=== PATIENT | female | born 1975 | race Caucasian/White ===

== ENCOUNTER 2019-05-03 22:32 | Emergency (ER) | payer SELFPAY ==
[2019-05-03 22:38] VITALS: BP 156/96; PULSE 108; RESP 18; TEMP 36.6; O2SAT 94; BMI 38.5
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
[2019-05-03 22:56] LABS: Basophils # 0.1 10^3/uL (0.0-0.1); Basophils % 0.5 %; Eosinophils # 0.2 10^3/uL (0.0-0.8); Eosinophils % 1.6 %; Hematocrit 44.3 % (37.0-47.0); Hemoglobin 14.3 g/dL (11.5-15.3); Lymphocytes # 1.6 10^3/uL (0.8-4.8); Lymphocytes % 16.8 %; Mean Corpuscular HGB Conc 32.3 g/dL (30.0-36.0); Mean Corpuscular Hemoglobin 30.1 pg (28.0-34.0); Mean Corpuscular Volume 93.3 fL (81-99); Mean Platelet Volume 9.8 fL (7.4-10.4); Monocytes # 0.8 10^3/uL (0.2-0.9); Monocytes % 8.6 %; Neutrophils # 6.7 10^3/uL (1.8-7.7); Nucleated Red Blood Cells % 0 %; Platelet Count 233 10^3/cmm (130-400); Red Blood Count 4.75 10^6/uL (4.1-5.3); Red Cell Distribution Width 11.9 % (12.1-15.1); White Blood Count 9.3 10^3/uL (4.0-10.0)
[2019-05-03 22:58] VITALS: RESP 20; O2SAT 98
[2019-05-03] MEDS: HYDROmorphone 1 mg/mL INJ 1 mL IVP (22:58)
[2019-05-03 23:00] VITALS: BP 138/75; PULSE 106; RESP 20; O2SAT 98
[2019-05-03 23:07] LABS: Anion Gap 16.9 (5-19); Blood Urea Nitrogen 13 mg/dL (6-20); Calcium 9.1 mg/dL (8.5-10.5); Carbon Dioxide 24 mmol/L (22-29); Chloride 103 mmol/L (98-107); Glomerular Filtration Rate 90.9 mL/min (90-130); Glucose 128 mg/dL (65-115); Osmolality Calculated 288 mOsm/kg (285-295); Potassium 3.9 mmol/L (3.5-5.1); Sodium 140 mmol/L (136-145)
[2019-05-03] MEDS: iohexol 300 mg/mL 100 mL Btl IV (23:45)
[2019-05-03 23:49] VITALS: BP 137/82; PULSE 93; RESP 18; O2SAT 96
[2019-05-04 00:33] VITALS: BP 137/79; PULSE 99; RESP 18; O2SAT 96
== END 2019-05-04 00:35 | disposition home or self-care (01) ==
PROVIDERS: Emergency Provider Emergency Medicine; Family Provider Nurse Practitioner Family; PCP Nurse Practitioner Family
DX: S13.4XXA Sprain of ligaments of cervical spine, initial encounter (principal); E66.9 Obesity, unspecified; V89.2XXA Person injured in unspecified motor-vehicle accident, traffic, initial encounter; Y92.410 Unspecified street and highway as the place of occurrence of the external cause; Z68.38 Body mass index [BMI] 38.0-38.9, adult
CPT/HCPCS: 70450; 71260; 72125; 73030; 74177; 80048; 85025; 96374; 96375; 99282; 99283; J1170; Q9967

== ENCOUNTER → 2020-02-12 12:49 | Outpatient (BNVA) | payer OTHER, SELFPAY | PROVIDERS: Family Provider Nurse Practitioner Family; PCP Nurse Practitioner Family; Visit Provider Nurse Practitioner Family | DX: Z20.828 Contact with and (suspected) exposure to other viral communicable diseases (principal); J06.9 Acute upper respiratory infection, unspecified | CPT/HCPCS: 87635 ==

== ENCOUNTER 2020-09-07 12:48 | Emergency (ER) | payer SELFPAY ==
[2020-09-07 13:04] VITALS: BP 141/82; PULSE 76; RESP 18; TEMP 36.7; O2SAT 97; BMI 38.0
[2020-09-07 14:00] VITALS: BP 109/83; PULSE 89; RESP 18; O2SAT 98
--- NOTE | 2020-09-07 14:09 | XRR_ITS ---
PROCEDURE INFORMATION: Exam: XR Chest Exam date and time: 09/07/2020 2:09 PM Age: 45 years old Clinical indication: Dyspnea TECHNIQUE: Imaging protocol: XR of the chest. Views: 1 view. COMPARISON: CT chest abd pel w con* 05/03/2019 11:47 PM FINDINGS: Lungs: No acute airspace disease. Pleural spaces: No pleural effusion. Heart/Mediastinum: No cardiomegaly. Bones/joints: Degenerative change. XR/XR chest 1V portable [id number] IMPRESSION: No acute airspace or pleural disease.
--- NOTE | 2020-09-07 14:13 | ECG_ITS ---
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 Measurements Intervals [place] Rate: 74 P: 56 DC: 195 QRS: 42 QRSD: 91 T: 30 QT: 375 QTc: 418 Interpretive Statements SINUS RHYTHM No previous ECG available for comparison Electronically Signed On 09-07-2020 18:51:35 CDT by Froylan Lu M.D. [id number]
--- NOTE | 2020-09-07 14:29 | W.ED.GENADLT ---
HPI - General Adult General: Chief complaint: General Medical Stated complaint: COUGH, H/A X 1 WK, LAST COVID (-) TEST 1 WK AGO Time Seen by Provider: 09/07/20 13:56 History of Present Illness: HPI narrative: The patient is a 45-year-old female with no significant past medical history who comes to the ER complaining of 1 week increasing shortness of breath, scratchy throat. She says a week ago where she works changed the face max today to use to a cheaper paper type I that she says has dust panties on the inside. She says within an hour of putting that new one on she complained of scratchy throat and increasing shortness of breath and feels like she cannot breathe. She says after the first day of wearing it she went home and had a temperature of 100, started to cough, she feels like when she bends over she will pass out and has a headache. She has not have any a fever since but has continued to have mild cough and scratchy throat as well as headache. She has spoken to her sr. director as she is a [employer] where she works who told her she had to wear the mask. Onset (ago): day(s) (7) Severity: moderate Quality: constant Associated symptoms: Deny chest pain, confusion, dyspnea, headache(s), rash or palpitations Review of Systems General: Reports: 10 or more systems reviewed and unremarkable except in HPI and below Const: Denies: fatigue Eyes: Denies: change in vision, blurry vision or eye redness ENMT: Reports: hoarseness, sinus pain and other; Denies: throat pain, swelling of lips/tongue, ear or mastoid pain or nasal congestion Card: Denies: chest pain, palpitations, irregular heart rhythm, edema, dyspnea on exertion or orthopnea Resp: Denies: dyspnea, productive cough or non-productive cough GI: Denies: abdominal pain, diarrhea or GI cramping : Denies: flank pain, difficulty voiding, urinary frequency or urinary urgency Musc: Denies: neck pain, back pain, extremity pain, joint pain, joint redness, limited range of motion or muscle weakness Skin/Breast: Denies: rash, pruritus, erythema, skin pain or skin tenderness Neuro: Denies: headache(s), numbness in extremities, weakness in extremities, sensory changes, difficulty walking, dizziness, confusion or Slurred speech present Psych: Denies: anxiety or depression Endo: Denies: polyuria All/Imm: Denies: urticaria, throat swelling or tongue swelling PFSH ED PFSH: Social History Smoking and tobacco status: former smoker Physical Exam Const: COMMON NORMALS: no acute distress, average body habitus, patient oriented x3, no limitations, healthy appearing, alert and well nourished GENERAL APPEARANCE: cooperative, comfortable, well kempt and well developed ORIENTATION/CONSCIOUSNESS: Yes awake, Yes oriented to person, Yes oriented to place and Yes oriented to time HENMT: COMMON NORMALS: normocephalic, external ears normal and Normal external nose present HEAD & SCALP: normal to inspection and normocephalic NOSE: Normal external nose present EXTERNAL EAR: Yes external ears normal MOUTH: Normal oral and palatal mucosa present THROAT: posterior oropharynx normal OTHER: Mild tenderness to frontal sinus. Eye: COMMON NORMALS: Equal, round and reactive pupils present and EOMs intact bilaterally GENERAL EYE: appearance normal, both eyes and all related structures PUPIL: Yes Equal, round and reactive pupils present Neck/C-Spine: COMMON NORMALS: full ROM, no lymphadenopathy, no meningeal signs and no JVD GENERAL: Yes normal visual inspection Lymph: LYMPHATIC: no lymphadenopathy noted Chest: COMMONS NORMALS: normal inspection of the chest and normal palpation of entire chest wall Resp: COMMON NORMALS: normal respiratory effort, No retractions, No use of accessory muscles, clear to auscultation bilaterally and percussion normal EFFORT & INSPECTION: Yes able to speak in complete sentences AUSCULTATION: clear to auscultation bilaterally PERCUSSION: percussion normal Cardio: COMMON NORMALS: no JVD, regular rate, regular rhythm, S1 normal heart sound present, S2 normal heart sound present and Peripheral pulses 2+ throughout RATE: regular rate RHYTHM: regular rhythm HEART SOUNDS: S1 normal heart sound present and S2 normal heart sound present PERIPHERAL PULSES: Peripheral pulses 2+ throughout GI: COMMON NORMALS: Normal to inspection, nondistended, normoactive bowel sounds present, Soft to palpation, non-tender and no masses INSPECTION: Yes normal to inspection PALPATION: Yes Soft to palpation : COMMON NORMALS: Yes no CVA tenderness BLADDER/KIDNEY EXAM: Yes no CVA tenderness Back/Pelvis: COMMON NORMALS: no CVA tenderness, thoracic and lumbar spine normal to inspection, no thoracic nor lumbar tenderness and thoraco-lumbar ROM normal Extremity: COMMON NORMALS: normal to inspection, full ROM, capillary refill normal, no joint enlargement and no pedal edema GENERAL: Yes normal exam except as noted Neuro: COMMON NORMALS: patient oriented x3, CN's II-XII intact bilaterally, moves all extremities, no focal motor deficits, no sensory deficits noted and gait normal SENSORIUM/ORIENTATION: Yes alert, Yes oriented to person, Yes oriented to place and Yes oriented to time MENINGEAL SIGNS: Yes no meningeal signs Psych: COMMON NORMALS: mental status grossly normal, Normal thought process present, cooperative, normal affect and speech normal APPEARANCE: Yes well kempt ATTITUDE: Yes calm SPEECH: Yes normal speech THOUGHT PROCESS: Normal thought process present Skin: COMMON NORMALS: no rashes or lesions noted GENERAL SKIN EXAM: no rashes or lesions noted Course Vital Signs: Vital signs: Vital Signs Temperature 98.1 F 09/07/20 13:04 Pulse Rate 76 09/07/20 14:58 Respiratory Rate 18 09/07/20 14:58 Blood Pressure 124/86 09/07/20 14:58 Pulse Oximetry 96 09/07/20 14:58 MDM - General Adult MDM Narrative: Medical decision making narrative: Her exam is normal except for some possible tenderness to frontal sinus. We will treat with azithromycin as an outpatient as well as prednisone to help her possible irritation from the mask. She is not to wear that mask anymore and find alternative face covering as the mask is possibly causing some of her throat irritation as well. Return to the ER at anytime with worsening symptoms otherwise follow-up with primary care physician next week. Lab Data: Labs: Lab Results 09/07/20 09/07/20 09/07/20 Range/Units 14:30 14:30 14:35 WBC 7.4 (4.0-10.0) 10^3/ uL RBC 4.66 (4.1-5.3) 10^6/u L Hgb 13.9 (11.5-15.3) g/dL Hct 43.5 (37.0-47.0) % MCV 93.3 (81-99) fL MCH 29.8 (28.0-34.0) pg MCHC 32.0 (30.0-36.0) g/dL RDW 12.3 (12.1-15.1) % Plt Count 235 (130-400) 10^3/c mm MPV 9.9 (7.4-10.4) fL Neut % (Auto) 67.4 % Lymph % (Auto) 20.8 % [place] % (Auto) 7.3 % Eos % (Auto) 3.4 % Baso % (Auto) 0.7 % Neut # (Auto) 4.96 (1.8-7.7) 10^3/u L Lymph # (Auto) 1.5 (0.8-4.8) 10^3/u L [place] # (Auto) 0.5 (0.2-0.9) 10^3/u L Eos # (Auto) 0.3 (0.0-0.8) 10^3/u L Baso # (Auto) 0.1 (0.0-0.1) 10^3/u L Nucleated RBC % (a uto) 0 % Nucleated RBCs # 0.0 /100WBC Sodium 141 (136-145) mmol/L Potassium 4.0 (3.5-5.1) mmol/L Chloride 106 (98-107) mmol/L Carbon Dioxide 27 (22-29) mmol/L Anion Gap 12.0 (5-19) BUN 12 (6-20) mg/dL Creatinine 0.7 (0.5-0.9) mg/dL GFR Calculation 90.1 (90-130) mL/min Glucose 87 (65-115) mg/dL Calculated Osmolal ity 291 (285-295) mOsm/k g Calcium 8.2 L (8.5-10.5) mg/dL Total Bilirubin 0.5 (0.15-1.2) mg/dL AST 14 (0-32) U/L ALT 18 (0-33) U/L Alkaline Phosphata se 77 (35-105) IU/L NT-Pro-B Natriuret Pep 57 (0-125) pg/mL Total Protein 6.9 (6.6-8.7) g/dL Albumin 4.0 (3.5-5.2) g/dL Globulin 2.9 (1.3-4.6) g/dL SARS-CoV-2 Ag (Rap id) Negative (Negative) Discharge Plan Discharge Patient Disposition: Home Clinical Impression: Sinusitis, Throat irritation Condition: Stable Prescriptions: New prednisone 20 mg tablet 20 mg PO BID 5 Days Qty: 10 RF: 0 No Action baclofen 10 mg tablet 10 mg PO BID PRN (Reason: back spasms) Qty: 45 RF: 0 Discharge Orders: Discharge ED (Routine); Ordered 09/07/20 Ordered By: Herson Wynn Referrals: Serjio Mays FNP [Primary Care Provider] - Discharge Diet: Advance as tolerated Discharge Activity: Resume usual activity Patient Instructions: Opioid Safety, Sinusitis - Acute Activity Restrictions/Additional Instructions: It is possible you are having a reaction to the face mask you have been wearing. Please discontinue use of that one and find some other face covering that you are able to wear without causing his shortness of breath and throat irritation as well as your other symptoms. It is also possible you have a sinus infection and I have prescribed you steroids and antibiotics to help with all of your symptoms. Return to the ER at anytime with worsening symptoms otherwise follow-up with your primary care physician next week to monitor your improvement. Coding Level of Care Code ED Hspt Tutor for Miryam Walter
[2020-09-07 14:41] LABS: Basophils # 0.1 10^3/uL (0.0-0.1); Basophils % 0.7 %; Eosinophils # 0.3 10^3/uL (0.0-0.8); Eosinophils % 3.4 %; Hematocrit 43.5 % (37.0-47.0); Hemoglobin 13.9 g/dL (11.5-15.3); Lymphocytes # 1.5 10^3/uL (0.8-4.8); Lymphocytes % 20.8 %; Mean Corpuscular Hemoglobin 29.8 pg (28.0-34.0); Mean Corpuscular Volume 93.3 fL (81-99); Mean Platelet Volume 9.9 fL (7.4-10.4); Monocytes # 0.5 10^3/uL (0.2-0.9); Monocytes % 7.3 %; Neutrophils # 4.96 10^3/uL (1.8-7.7); Neutrophils % 67.4 %; Nucleated Red Blood Cells % 0 %; Platelet Count 235 10^3/cmm (130-400); Red Blood Count 4.66 10^6/uL (4.1-5.3); Red Cell Distribution Width 12.3 % (12.1-15.1); White Blood Count 7.4 10^3/uL (4.0-10.0)
[2020-09-07 14:58] VITALS: BP 124/86; PULSE 76; RESP 18; O2SAT 96
[2020-09-07 15:09] LABS: Alanine Aminotransferase 18 U/L (0-33); Alkaline Phosphatase 77 IU/L (35-105); Aspartate Amino Transferase 14 U/L (0-32); Blood Urea Nitrogen 12 mg/dL (6-20); Calcium 8.2 mg/dL (8.5-10.5); Carbon Dioxide 27 mmol/L (22-29); Chloride 106 mmol/L (98-107); Globulin 2.9 g/dL (1.3-4.6); Glomerular Filtration Rate 90.1 mL/min (90-130); Glucose 87 mg/dL (65-115); NT Pro B Type Natriuretic Pept 57 pg/mL (0-125); Osmolality Calculated 291 mOsm/kg (285-295); Sodium 141 mmol/L (136-145); Total Bilirubin 0.5 mg/dL (0.15-1.2); Total Protein 6.9 g/dL (6.6-8.7)
[2020-09-07 15:23] LABS: SARS Covid-2 Antigen Negative (Negative)
[2020-09-07 15:42] VITALS: BP 124/86; PULSE 76; RESP 18; O2SAT 96
== END 2020-09-07 15:43 | disposition home or self-care (01) ==
PROVIDERS: Emergency Provider Family Medicine; PCP Registered Nurse
DX: J32.9 Chronic sinusitis, unspecified (principal); R07.0 Pain in throat; Z87.891 Personal history of nicotine dependence
CPT/HCPCS: 71045; 80053; 83880; 85025; 87426; 93005; 99283

== ENCOUNTER → 2020-11-09 09:51 | Outpatient (BNVA) | payer OTHER, SELFPAY | PROVIDERS: PCP Registered Nurse; Visit Provider Registered Nurse | DX: Z20.822 Contact with and (suspected) exposure to COVID-19 (principal); Z11.52 Encounter for screening for COVID-19; J02.9 Acute pharyngitis, unspecified; R11.2 Nausea with vomiting, unspecified | CPT/HCPCS: 87635 ==

== ENCOUNTER → 2020-11-12 09:02 | Outpatient (BNVA) | payer SELFPAY | PROVIDERS: PCP Registered Nurse; Visit Provider Registered Nurse | DX: R19.7 Diarrhea, unspecified (principal) | CPT/HCPCS: 87493; 87506 ==

== ENCOUNTER 2020-12-22 20:12 | Emergency (ER) | payer SELFPAY ==
[2020-12-22 20:22] VITALS: BP 126/80; PULSE 97; RESP 18; TEMP 36.8; O2SAT 95; BMI 37.9
--- NOTE | 2020-12-22 21:23 | ED_ITS ---
HPI - General Adult General: Chief complaint: Headache Stated complaint: Migrane Headache Time Seen by Provider: 12/22/20 21:12 History of Present Illness: HPI narrative: HPI: [45]yo patient w hx of migraine headache presenting to the ED with new onset of headache x 3 days. Describes the headache as pulsatile or cramping headache radiating from the occipital scalp to the front R side. Patient reports headache was gradual in onset over [] hrs and has since been intermittent unremitting and worsening. []Headache associated with +N/+V, photophobia, generalized weakness, and inability to concentrate on tasks. Denies fever/chill, hx of immunocompromise, HIV, or transplant. The patient denies any focal neurological weakness, vision blindness, diplopia, or eye pain, hoarseness of voice or facial weakness. The patient has had decreased PO intake since the onset of headache symptoms. No family hx of subarachnoid hemorrhage. Denies recent trauma to the head. Pain is unrelieved with OTC medication, ibuprofen or Tylenol. Per chart review, the patient prior ED visits for headache. No complaints of chest pain, shortness of breath, palpitations, light-headedness/vertigo/syncope, abdominal pain, or complaints today. Onset: 3days ago Duration: ongoing Location: home Severity: moderate Review of Systems Narrative: Constitutional: No fever, no chills. HEENT: +blurriness of vision CV: No chest pain, no palpitations PULM: No productive cough, no dyspnea. GI: No abdominal pain, +N/+V/-D. : No Dysuria MSKEL: No muscle pain SKIN: No new rashes, no lesions. NEURO: + headache, no focal weakness. HEME: No visible bruises PSYCH: Normal mood PFSH ED PFSH: Social History Smoking and tobacco status: former smoker Physical Exam Narrative: EXAM NARRATIVE: Head: Atraumatic Eyes: PERRL, conjunctiva without injection, eyes tracking ENT: Mucous membrane moist NECK: Supple without lymphadenopathy, no nuchal rigidity LUNGS: LCTAB CV: RRR ABDOMEN: Soft, nontender in all quadrants, no guarding or rebound tenderness, no CVA or flank tenderness bilaterally EXTREMITY: Normal ROM SKIN: No rash or erythema through the whole body NEURO: Mental status: A/Ox3 CN II-XII tested and intact. Sensation intact to sharp/dull differentiation in all extremities. Motor: Normal tone and bulk. No abnormal movements appreciated. No pronator drift. Strength tested and 5/5 in bilateral wrist flexion/extension, elbow flexion/extension, shoulder abduction, straight leg raise, knee flexion/extension, ankle dorsiflexion/plantarflexion. Patient ambulates with a steady gait. PSYCH: Cooperative mood and affect Procedures Nerve Block Nerve Block 1: Time out performed: Yes Local Anesthetic: lidocaine 1% Amount of anesthesia used (mL): 2 Side: right Nerve Blocks: occipital Procedure Successful: Yes Patient Tolerated Procedure: well Complications: none Course Vital Signs: Vital signs: Vital Signs Temperature 98.3 F 12/22/20 20:22 Pulse Rate 89 12/22/20 21:48 Respiratory Rate 18 12/22/20 21:48 Blood Pressure 125/84 12/22/20 21:48 Pulse Oximetry 97 12/22/20 21:48 MDM - General Adult MDM Narrative: Medical decision making narrative: [45] yo w/ hx of migraine headache presents with headache. -Fever, -Nausea/-Vomiting, -Neck pain. -Trauma. Afebrile, HDS stable. No focal neurological symptoms. Neuro exam is non-focal. Pt is nontoxic. Based on history and normal neurological exam I do not suspect intracranial tumor, intracranial bleed, subdural/epidural hematoma, meningitis or intracranial abscess, encephalopathy or encephalitis, temporal arteritis, glaucoma, CO poisoning. Presentation most likely benign headache. Intervention: Toradol IM, tylenol, and serial reassessment. +Occipital nerve block [12:22pm] On reassessment, the patient reports headache is symptomatically improved with treatment and occpital nerve block. Patient is able to ambulate and tolerate PO in the ED. Rx: Tylenol and magnesium PRN headache Disposition: Discharge. The patient is given strict return precautions and instructions for prompt primary care follow up. Given referral for Neurology should any headache recur. Given return instructions for any focal deficit, fever/chill, neck pain or any new or concerning symptoms. Discharge Plan Discharge Patient Disposition: Home Clinical Impression: Headache, Migraine Condition: Stable Prescriptions: New acetaminophen 500 mg tablet 500 mg PO TID PRN (Reason: headache) 10 Days Qty: 30 RF: 0 magnesium oxide 400 mg magnesium capsule 400 mg PO DAILY PRN (Reason: headache) 10 Days Qty: 10 RF: 0 Discharge Orders: Discharge ED (Routine); Ordered 12/23/20 Ordered By: Bessy Matute Discharge Diet: Advance as tolerated Discharge Activity: Resume usual activity Patient Instructions: Migraine Headache (ED), Acute Headache (ED) Activity Restrictions/Additional Instructions: Please come back to the emergency room if your headache worsens, if you have any fever or chills, if any new or concerning complaints. 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
[2020-12-22 21:48] VITALS: BP 125/84; PULSE 89; RESP 18; O2SAT 97
[2020-12-23] MEDS: ketorolac 30 mg/mL INJ IM (00:47)
[2020-12-23 00:53] VITALS: BP 138/74; PULSE 81; RESP 18; O2SAT 97
== END 2020-12-23 00:54 | disposition home or self-care (01) ==
PROVIDERS: Emergency Provider Emergency Medicine
DX: G43.909 Migraine, unspecified, not intractable, without status migrainosus (principal); Z87.891 Personal history of nicotine dependence
CPT/HCPCS: 96372; 99282; J1885

== ENCOUNTER 2021-06-29 00:34 | Emergency (ER) | payer OTHER, SELFPAY ==
[2021-06-29 00:40] VITALS: BP 162/103; PULSE 100; RESP 20; TEMP 36.4; O2SAT 96; BMI 39.5
--- NOTE | 2021-06-29 00:48 | W.ED.GENADLT ---
HPI - General Adult General: Chief complaint: General Medical Stated complaint: Two Knots under left Arm\Pain Time Seen by Provider: 06/29/21 00:47 History of Present Illness: Ms. Quispe is a 46-year-old lady without significant past medical history who presents to the emergency department due to concern over painful lumps under her left axillary region. She reports first noticing small amount of irritation/pain few days ago however this markedly worsened today. She endorses moderate to severe intensity discomfort that is worse when her arm is adducted or anything touches it. She denies similar episodes in the past. She denies on systemic illness. 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 Overall course of symptoms has been worsening. No other specific changes in health, exacerbating, or alleviating factors identified. Onset (ago): day(s) Location: chest, left and upper extremity Severity: moderate Quality: aching Pain Consistency: constant Relieving factors: none Exacerbating factors: other Associated symptoms: Reports no associated symptoms Review of Systems General: Reports: 10 or more systems reviewed and unremarkable except in HPI and below PFSH ED PFSH: Medical History No significant past medical history Surgical History History of ankle surgery X3 on R ankle Hx of section Hx of hysterectomy Social History (Updated 06/29/21 @ 01:04 by Santana Watts MD) Smoking and tobacco status: current every day smoker Physical Exam Const: COMMON NORMALS: alert GENERAL APPEARANCE: cooperative and well developed HENMT: COMMON NORMALS: normocephalic and atraumatic HEAD & SCALP: normocephalic and atraumatic Eye: COMMON NORMALS: conjunctivae normal CONJUNCTIVA: Yes conjunctivae normal SCLERA: sclerae normal Neck/C-Spine: COMMON NORMALS: supple GENERAL: Yes trachea midline Chest: OTHER: Left axillary palpable mass with mild erythema, approximately 6 x 4 cm, tender. No clear evidence of head on fluid collection Resp: COMMON NORMALS: clear to auscultation bilaterally EFFORT & INSPECTION: Yes able to speak in complete sentences AUSCULTATION: clear to auscultation bilaterally Cardio: COMMON NORMALS: regular rate and regular rhythm RATE: regular rate RHYTHM: regular rhythm GI: COMMON NORMALS: Soft to palpation PALPATION: Yes Soft to palpation and No Tenderness to palpation present (GI) PERCUSSION: normal to percussion Extremity: GENERAL: Yes normal exam except as noted and No edema Neuro: COMMON NORMALS: moves all extremities SENSORIUM/ORIENTATION: Yes alert and No Orientation impaired Psych: COMMON NORMALS: mental status grossly normal and Normal thought process present THOUGHT PROCESS: Normal thought process present Course ED course: - Patient was seen and evaluated by me at bedside - Vital signs obtained - Initial evaluation notable for exam as above - [id number] ultrasound performed of the left axillary region there is soft tissue cobblestoning consistent with cellulitis. There is scattered very small ill-defined hypoechoic areas as well as 1 slightly larger approximately 1 cm x 2 cm x 1 cm irregular though this is also ill-defined and surrounds what appears to be hyperechoic lymph node. Overall does not appear amenable to drainage. - Antibiotic given - Upon serial reexamination after treatment the patient was improved with analgesia - Based on patient history, evaluation, and testing as interpreted the most likely cause of the patient's condition is cellulitis with questionable developing abscess. Exam is not consistent with hidradenitis suppurativa. - The results of ED evaluation were discussed with the patient including prescriptions and/or symptomatic cares (if applicable) including appropriate and responsible use, followup plan, and return precautions. The patient verbalized understanding and felt safe for discharge. - Patient discharged in satisfactory condition. Note: Click bubbles or prepopulated crum in note writing are used for assistance with data collection and billing and are inherently more limited than narrative and other text portions of this note. Please use narrative for additional clinical history and defer to narrative/free test for any case of contradictory information. If information appears in only free text or click bubble it should be considered present or absent as reported. Please contact note scenario writer for clarifications of clinical information or contradictory information. MDM is a brief summary, contradictory or erroneous seeming information should be clarified and full note should be reviewed. Vital Signs: Vital signs: Vital Signs Temperature 97.6 F 06/29/21 00:40 Pulse Rate 100 06/29/21 00:40 Respiratory Rate 20 H 06/29/21 00:40 Blood Pressure 162/103 06/29/21 00:40 Pulse Oximetry 96 06/29/21 00:40 MDM - General Adult Medical Decision Making 46-year-old lady presenting with axillary pain and swelling. Exam concerning for cellulitis. Ultrasound with ill-defined possible developing abscesses though not amenable to drainage at this time. Symptoms improved with analgesia and patient given IV antibiotic dose. Satisfactory for discharge with strict return precautions including failure to improve within the next 2 days or signs of systemic illness. Medical Records I reviewed the patient's medical records. Lab Data I reviewed the patient's lab results. Discharge Plan Discharge Patient Disposition: Home Clinical Impression: Cellulitis of axillary region Condition: Stable Prescriptions: New clindamycin HCl 150 mg capsule 450 mg PO Q8H 7 Days Qty: 63 0RF ondansetron 4 mg tablet,disintegrating 4 mg PO Q8H PRN (Reason: nausea and vomiting) 5 Days Qty: 15 0RF oxycodone 5 mg tablet 5 mg PO Q4H PRN (Reason: pain) Qty: 14 0RF Discharge Orders: Discharge ED (Routine); Ordered 06/29/21 Ordered By: Santana Watts Discharge Diet: Usual diet Discharge Activity: Increase activity as tolerated Patient Instructions: Cellulitis (ED), Opioid Safety Activity Restrictions/Additional Instructions: Thank you for visiting the emergency department. You were seen and evaluated for axillary pain. This is most likely secondary to cellulitis which is infection of the skin. You will be given a prescription for antibiotics. Additionally you will be given pain medications. Please follow-up with your primary care provider. Please return to the emergency department for worsening symptoms, signs of systemic illness, failure to begin to improve within the next 2 days, or anything else that you are concerned about and feel needs emergency department evaluation. You may use additional [id number] medications for symptoms however please do not exceed the daily recommended dosage and please keep in mind that many namebrand medications contain the same active ingredient. 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
[2021-06-29] MEDS: oxyCODONE 5 mg IR Tab/Cap PO (01:40)
[2021-06-29] MEDS: clindamycin 600 MG/50 ML PREMIX 100 MG IV (01:47)
[2021-06-29] MEDS: acetaminophen 500 mg Tablet 1000 MG PO (02:15)
[2021-06-29] MEDS: ketorolac 30 mg/mL INJ 15 MG IVP (02:15)
== END 2021-06-29 02:45 | disposition home or self-care (01) ==
PROVIDERS: Emergency Provider Emergency Medicine
DX: L03.112 Cellulitis of left axilla (principal); F17.200 Nicotine dependence, unspecified, uncomplicated
CPT/HCPCS: 96365; 96375; 99283; J1885; J3490

== ENCOUNTER → 2021-08-26 08:54 | Outpatient (BNVA) | payer OTHER, SELFPAY | PROVIDERS: PCP Registered Nurse; Visit Provider Nurse Practitioner Family | DX: R10.11 Right upper quadrant pain (principal); G43.909 Migraine, unspecified, not intractable, without status migrainosus | CPT/HCPCS: 80053; 85025 ==

== ENCOUNTER → 2022-02-24 13:45 | Outpatient (BNVA) | payer OTHER, SELFPAY | PROVIDERS: PCP Registered Nurse; Visit Provider Nurse Practitioner Family | DX: R69 Illness, unspecified (principal); J32.9 Chronic sinusitis, unspecified | CPT/HCPCS: 87400 ==

== ENCOUNTER → 2022-03-07 08:54 | Outpatient (BNVA) | payer OTHER, SELFPAY | PROVIDERS: PCP Registered Nurse; Visit Provider Registered Nurse | DX: R68.89 Other general symptoms and signs (principal); J32.9 Chronic sinusitis, unspecified | CPT/HCPCS: 85025; 87400 ==

== ENCOUNTER → 2022-09-12 14:55 | Outpatient (BNVA) | payer OTHER, SELFPAY | PROVIDERS: PCP Registered Nurse; Visit Provider Registered Nurse | DX: Z13.1 Encounter for screening for diabetes mellitus (principal); E66.9 Obesity, unspecified | CPT/HCPCS: 80053; 83036 ==